=== PATIENT | male | born 1960 | race Caucasian/White ===

== ENCOUNTER 2016-07-21 14:46 | Inpatient (IN) ==
--- NOTE | 2016-07-21 15:21 | EKG Report ---
Stationary ECG Study [facility] ER Test Date: 07/21/2016 3:11:23 PM Pat Name: BC LAMAR Department: Room: Gender: M Project Controls Specialist: : [id number] Requested by: Junior Cavazos Order Number: [id number] Reading MD: AILIN PEREZ Intervals [place] Rate: 100 P: 54 AL: 135 QRS: 59 QRSD: 92 T: 60 QT: 337 QTc: 394 Interpretive Statements SINUS TACHYCARDIA SEPTAL INFARCT, AGE UNDETERMINED PROBABLY OLD MINIMAL ST DEPRESSION Electronically Signed On 07-21-16 15:50:27 NURSING HOME ASSISTANT by AILIN PEREZ [email or web address]
[2016-07-21] MEDS ORDERED: methylPREDNISolone SOD SUC 125 MG/2 ML VIAL IV STA (15:31)
[2016-07-21] MEDS ORDERED: ALBUTEROL/IPRATROPIUM 3 ML NEB RESP TX STA (15:31)
[2016-07-21] MEDS ORDERED: FUROSEMIDE 40 MG/4 ML VIAL IV STA ×2 (15:31→21:20)
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
--- NOTE | 2016-07-21 16:04 | XRay Report ---
History: Shortness of breath Date: 07/21/2016 at 3:49 PM Study: Chest x-ray PA and lateral Comparison exam: Chest x-ray November 12, 2015 There is stable borderline cardiomegaly. The mediastinal contours are unremarkable. The pulmonary vasculature is not engorged. There is moderate right-sided pleural effusion which has increased since the November 12, 2015 chest x-ray. There is a small left pleural effusion. There is some parenchymal consolidation in the right lung base which could represent pneumonia or passive atelectasis. The osseous structures are unchanged. Impression: Moderate right-sided pleural effusion which has increased since the previous study. Probable passive atelectasis right lower lung, though pneumonia cannot be excluded. Tiny left pleural effusion PROCEDURE INTERPRETED AT [facility] DEPARTMENT OF RADIOLOGY Final Report Signed by: Dr. Olive Cline
[2016-07-21] MEDS ORDERED: FUROSEMIDE 100 MG/10 ML VIAL ONE (16:29)
[2016-07-21] MEDS ORDERED: methylPREDNISolone SOD SUC 125 MG/2 ML VIAL ONE (16:30)
[2016-07-21 16:46] LABS: Basophils % 0.7 % (0.0-0.8); Eosinophils # 0.1 10*3/uL (0.0-0.87); Eosinophils % 1.8 % (0.00-10.9); Hematocrit 40.5 VOL% (42.0-52.0); Hemoglobin 13.4 GM/DL (14.0-18.0); Immature Granulocytes % 0.3 %; Immature Granulocytes Absolute 0.02 #; Lymphocytes # 1.2 10*3/uL (1.4-4.0); Lymphocytes % 20.3 % (21.2-54.2); Mean Corpuscular HGB Conc 33.1 GM/DL (32-36); Mean Corpuscular Hemoglobin 28 PG (27-34); Mean Corpuscular Volume 83.2 FL (87-102); Mean Platelet Volume 11.9 FL (9.6-12.0); Monocytes # 0.3 10*3/uL (0.11-0.8); Monocytes % 4.9 % (1.7-12.7); Neutrophils # 4.4 10*3/uL (1.4-7.4); Platelet Count 163 10*3/uL (130-400); Red Blood Count 4.87 10*6/uL (3.8-5.5); Red Cell Distribution Width 12.9 % (9.3-17.3); White Blood Count 6.1 10*3/uL (4.5-13.71)
[2016-07-21 16:58] LABS: PT Patient Result 10.9 SECS
[2016-07-21 17:12] LABS: Albumin 2.6 G/DL (3.4-5.0); Bilirubin,Total 0.5 MG/DL (0.2-1.0); Calcium 8.9 MG/DL (8.5-10.1); Osmolality,Calculated 290.8 MOS/KG (273-304); Potassium 3.3 MMOL/L (3.5-5.1); Total Protein 6.4 G/DL (6.4-8.3)
[2016-07-21 19:18] LABS: Apearance,Urine CLEAR (Clear); Bilirubin,Urine Negative (Negative); Blood, Urine Small mg/dL (Negative); Glucose,Urine (UA) 50 mg/dL (Negative); Hyaline Casts,Urine 14 /LPF (0-3); Ketones,Urine Negative (Negative); Nitrite,Urine Negative (Negative); Protein,Urine 100 MG/DL; RBC,Urine 2 /HPF (0-4); Urine Color Yellow (Yellow); Urine Specific Gravity 1.006 (1.001-1.035); Urine Urobilinogen < 2.0 EU/DL (0.2-1.0); WBC,Urine 2 /HPF (0-6)
[2016-07-21 19:26] LABS: Barbiturates Screen,Urine Negative (Negative); Benzodiazepines Screen,Urine Negative (Negative); Cannabinoid Screen,Urine Negative (Negative); Opiate Screen,Urine Negative (Negative); Phencyclidine Screen,Urine Negative (Negative)
[2016-07-21] MEDS ORDERED: ALBUTEROL NEB SOLN 5 MG/ML 20 ML/BOTTLE CONT NEB STA (21:20)
[2016-07-21] MEDS ORDERED: POTASSIUM BICARB EFFERVESCENT 25 MEQ TABLET PO ONE ×2 (21:23→21:32)
[2016-07-21] MEDS ORDERED: FUROSEMIDE 40 MG/4 ML VIAL ONE (21:32)
[2016-07-21 21:43] LABS: CKMB % 5.7 %; Troponin I Only 0.333 NG/ML (0.00-0.045)
[2016-07-21] MEDS ORDERED: GLUCAGON 1 MG VIAL IM PRN (22:28)
[2016-07-21] MEDS ORDERED: MORPHINE 2 MG/1 ML SYRINGE IV PRN (22:28)
[2016-07-21] MEDS ORDERED: BISACODYL 5 MG TABLET PO PRN (22:28)
[2016-07-21] MEDS ORDERED: ONDANSETRON 4 MG/2 ML VIAL IV PRN (22:28)
[2016-07-21] MEDS ORDERED: DEXTROSE 50% 25 GM/50 ML VIAL IV PRN (22:28)
[2016-07-21] MEDS ORDERED: ACETAMINOPHEN 325 MG TABLET PO PRN (22:28)
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
[2016-07-22 05:07] LABS: Hematocrit 35.9 VOL% (42.0-52.0); Hemoglobin 11.9 GM/DL (14.0-18.0); Immature Granulocytes % 0.2 %; Immature Granulocytes Absolute 0.01 #; Lymphocytes # 0.3 10*3/uL (1.4-4.0); Lymphocytes % 7.9 % (21.2-54.2); Mean Corpuscular HGB Conc 33.1 GM/DL (32-36); Mean Corpuscular Hemoglobin 27 PG (27-34); Mean Corpuscular Volume 82.7 FL (87-102); Mean Platelet Volume 12.2 FL (9.6-12.0); Monocytes # 0.1 10*3/uL (0.11-0.8); Monocytes % 1.2 % (1.7-12.7); Neutrophils # 3.9 10*3/uL (1.4-7.4); Neutrophils % 90.7 % (38.7-73.9); Platelet Count 142 10*3/uL (130-400); Red Blood Count 4.34 10*6/uL (3.8-5.5); Red Cell Distribution Width 13.1 % (9.3-17.3); White Blood Count 4.3 10*3/uL (4.5-13.71)
[2016-07-22 05:38] LABS: Lymphocytes 6 % (20-55); Platelet Estimate Normal; Segmented Neutrophils 93 % (50-85); Total Cells Counted 100
[2016-07-22 05:42] LABS: Calcium 8.3 MG/DL (8.5-10.1); Magnesium 1.4 MG/DL (1.8-2.4); Osmolality,Calculated 313.1 MOS/KG (273-304); Potassium 3.5 MMOL/L (3.5-5.1)
[2016-07-22] MEDS: INSULIN REGULAR 100 UNIT/ML SUBCUT SCH ×5 (05:57→20:28)
--- NOTE | 2016-07-22 08:42 | XRay Report ---
History: Shortness of breath Date: 07/22/2016 at 6:52 AM Study: Chest x-ray AP portable Comparison exam: Chest x-ray 07/21/2016 There is opacification of the lower right hemithorax related to moderate right-sided pleural effusion. There is some underlying parenchymal consolidation which could represent passive atelectasis or pneumonia. The left lung is grossly clear for shallow breath. There is stable borderline cardiomegaly. The mediastinal contours are unchanged in this patient status post previous thoracotomy. The osseous structures are generally unremarkable. Impression: Moderate right-sided pleural effusion without gross change. Parenchymal consolidation in the right lung base which could represent passive atelectasis or pneumonia PROCEDURE INTERPRETED AT [facility] DEPARTMENT OF RADIOLOGY Final Report Signed by: Dr. Olive Cline
[2016-07-22] MEDS ORDERED: INFLUENZA VIRUS VACCINE 0.5 ML SYRINGE IM ONE (09:00)
[2016-07-22] MEDS: FERROUS SULFATE 325 MG TABLET PO SCH ×3 (09:25→20:25)
[2016-07-22] MEDS: predniSONE 10 MG TABLET PO SCH (09:25)
[2016-07-22] MEDS: ATORVASTATIN 80 MG TABLET PO SCH (09:25)
[2016-07-22] MEDS: MAGNESIUM OXIDE 400 MG TABLET PO SCH ×2 (09:25→20:25)
[2016-07-22] MEDS: MULTIVITAMIN (CENTRUM) TABLET PO SCH (09:25)
[2016-07-22] MEDS: GABAPENTIN 300 MG CAPSULE PO SCH ×3 (09:25→20:25)
[2016-07-22] MEDS: ASPIRIN EC 81 MG TABLET PO SCH (09:25)
[2016-07-22] MEDS: PANTOPRAZOLE 40 MG TABLET PO SCH (09:25)
[2016-07-22] MEDS: EZETIMIBE 10 MG TABLET PO SCH (09:25)
[2016-07-22] MEDS: FUROSEMIDE 40 MG/4 ML VIAL IV SCH ×2 (09:26→16:12)
--- NOTE | 2016-07-22 10:47 | ECHO Report ---
Danny Patterson Exam Date: 07/22/2016 08:30 Referring Physician: Technologist: Marcell SMITH Age: 56 Ht (in): Wt (lb): Gender: M Exam Location: [facility] Echo Indications: Diabetes, Hx. CABG, Acute resp. failure, recurrent RT. Pleural effusion, Hx. CAD, HTN, post OP wound infection, elevated BNP BP: / HR: Rhythm: Sinus tachycardia Technical Quality: Fair IMPRESSIONS 1. Patient in sinus tachycardia is a fair quality study. 2. Left ventricle normal size with mild to moderate concentric left ventricular hypertrophy and global hypokinesis and ejection fraction of 35-40% at best. 3. Left atrium is mild to moderately dilated. 4. Right-sided chambers normal size. 5. Mitral valve with trace to mild mitral regurgitation. 6. Normal right-sided pressures. MEASUREMENTS (Male / Female) Normal Values 2D ECHO LV Diastolic Diameter PLAX 4.7 cm 4.2 - 5.9 / 3.9 - 5.3 cm LV Systolic Diameter PLAX 3.8 cm LV Fractional Shortening PLAX 19.3 % IVS Diastolic Thickness 1.6 cm 0.6 - 1.0 / 0.6 - 0.9 cm LVPW Diastolic Thickness 1.4 cm 0.6 - 1.0 / 0.6 - 0.9 cm RV Internal Dim ED PLAX 3.3 cm Aortic Root Diameter 2.9 cm LA Systolic Diameter LX 4.8 cm 3.0 - 4.0 / 2.7 - 3.8 cm DOPPLER TR Peak Velocity 202.0 cm/s TR Peak Gradient 16.3 mmHg FINDINGS Left Ventricle Left ventricle is normal size with mild to moderate concentric left ventricular hypertrophy. There is global hypokinesis with an ejection fraction of 35-40%. Right Ventricle Normal right ventricular size. Right Atrium Normal right atrial size. Left Atrium Left atrium mild to moderately increased in size. Mitral Valve Anatomically normal mitral valve with trace to mild mitral regurgitation. Aortic Valve Aortic valve is a tricuspid structure with normal motion without stenosis or regurgitation. Tricuspid Valve Morphologically normal tricuspid valve. Trace to mild tricuspid valve regurgitation. Tricuspid valve gradient is 16 mmHg. Peak estimated right ventricular pressure is 21-26 mmHg. Pulmonic Valve Morphologically normal pulmonic valve. Pericardium No pericardial effusion. Aorta Normal size aortic root and proximal ascending aorta. Bandar Samano MD (Electronically Signed) Final Date: 22 July 2016 10:46
[2016-07-22] MEDS ORDERED: MAGNESIUM SULF RIDER 2 GM in PREMIX 1 EACH IV PRN (12:12)
[2016-07-22] MEDS ORDERED: MAGNESIUM SULF RIDER 4 GM in PREMIX 1 EACH IV PRN (12:12)
--- NOTE | 2016-07-22 12:31 | Hospitalist Progress Note ---
Assessment and Plan (1) Recurrent right pleural effusion Status: Acute Current Visit: Yes (2) Acute on chronic systolic CHF (congestive heart failure) Status: Acute Current Visit: Yes (3) Acute respiratory failure Status: Acute Current Visit: Yes (4) Insulin dependent diabetes mellitus Status: Acute Current Visit: Yes (5) Hypomagnesemia Status: Acute Current Visit: Yes (6) Hx of CABG Status: Acute Assessment and plan: Plan: 07/21: Admit to telemetry, check serial cardiac enzymes, consult interventional radiology for thoracentesis in the morning. Continue current home medications as appropriate, check echo to evaluate LV function, otherwise supportive care with supplemental oxygen and DuoNeb's. 07/22: Thoracentesis today. We'll start him on low-dose Coreg, hold off YONNY inhibitor/ARB for now due to decreased renal function. Continue diuretics. We' ll watch him overnight and if respiratory status has improved will consider discharge with close follow-up with Dr. Montenegro, his slitting machine operator helper. Current Visit: Yes Hospitalist: Subjective Interval history: Mr. Pattesron continues to have significant dyspnea on exertion as well as orthopnea. I have spoken to the interventional radiologist who will kindly perform a right thoracentesis this afternoon, which is much appreciated. His echo also shows evidence of congestive heart failure with global hypokinesis ejection fraction 35-40%. He denies chest pain, nausea or vomiting. His appetite has improved as well. Exam - Constitutional Vitals: Period Temp Pulse Resp BP Sys/Stern Pulse Ox Last 24 Hr 97.3 F-100.4 F 55-115 18-20 117-148/65-90 93-100 Exam: EXAM: CONSTITUTIONAL: non toxic, NAD HEENT: NC, AT, OP benign, WILFREDO, EOMI CV: RRR no m/g/r RESP: Left side clear, right side with severely diminished breath sounds throughout most of the lung field GI: abd soft, NT, ND, +bowel sounds INTEGUMENTARY: no lesions or rash EXTREMITIES: 1-2+ pitting edema of the lower extremities bilaterally NEURO: no focal deficits PSYCH: unremarkable, A/O x3 Results - Labs CBC & BMP: 07/22/16 04:48 07/22/16 04:48 Lab Results: I have reviewed the past 24 hour labs - Diagnostic Findings Procedure: Chest x-ray: image reviewed by me, report reviewed by me Specialty Discharge - Follow Up or Referrals - Discharge Medications No Action predniSONE TAB [PredniSONE] 10 mg PO DAILY Insulin NPH Human Isophane [NovoLIN N] 20 unit SUBCUT QAM Gabapentin Cap/Tab [Neurontin Cap/Tab] 300 mg PO TID Atorvastatin Calcium 80 mg PO DAILY Torsemide Tab [Demadex Tab] 20 mg PO BID Ezetimibe [Zetia] 10 mg PO DAILY Multivitamin [One Daily] 1 each PO DAILY Magnesium Oxide 400 mg PO BID Insulin Glargine [Lantus] 70 units SUBCUT BEDTIME Ferrous Sulfate 325 mg PO TID Aspirin [Ecotrin] 81 mg PO DAILY
[2016-07-22] MEDS: CARVEDILOL 3.125 MG TABLET PO SCH ×2 (16:12→20:25)
[2016-07-22] MEDS ORDERED: PHENOL 1.4% THROAT SPRAY 177 ML BOTTLE PO PRN (17:40)
--- NOTE | 2016-07-22 18:18 | Post Interventional Procedure ---
Pre-op diagnosis: Right pleural effusion Post-op diagnosis: same Procedure: Ultrasound guided right thoracentesis Radiologist: Olive Cline Anesthesia: local Specimens: none sent Estimated blood loss: none Complications: none Condition: stable Description/Findings: A formal timeout was performed. The right pleural effusion was identified with ultrasound. The dorsal right chest was prepped and draped in sterile fashion. Under sonographic guidance, a 6 [place] pigtail catheter was advanced into the effusion using trocar technique. A captured sonographic image documents needle position. The needle was removed. Through the catheter, we obtained a total of 1000 mL of straw-colored, clear fluid. The catheter was removed. A bandage was placed at the puncture site. The patient tolerated the procedure well. Chest radiograph post procedure showed no pneumothorax. Impression: Ultrasound-guided thoracentesis.
--- NOTE | 2016-07-22 18:37 | XRay Report ---
History: Pleural effusion. Postop thoracentesis Date: 07/22/2016 Study: Chest x-ray inspiration and expiration following thoracentesis by Dr. Cline Comparison exam: Chest x-ray 07/22/2016 at 6:52 AM There is a mild to moderate residual right pleural effusion, though this has decreased moderately in size following thoracentesis. There is some mild atelectatic parenchymal consolidation in the right lung base which is improved. Exam is otherwise unchanged Impression: No evidence of pneumothorax following thoracentesis PROCEDURE INTERPRETED AT [facility] DEPARTMENT OF RADIOLOGY Final Report Signed by: Dr. Olive Cline
--- NOTE | 2016-07-22 18:38 | Ultrasound Report ---
History: Right pleural effusion Date: 07/22/2016 Study: Ultrasound guided right thoracentesis ULTRASOUND-GUIDED THORACENTESIS A formal timeout was performed. The right pleural effusion was identified with ultrasound. The dorsal right chest was prepped and draped in sterile fashion. Under sonographic guidance, a 6 [place] pigtail catheter was advanced into the effusion using trocar technique. A captured sonographic image documents needle position. The needle was removed. Through the catheter, we obtained a total of 1000 mL of straw-colored, clear fluid. The catheter was removed. A bandage was placed at the puncture site. The patient tolerated the procedure well. Chest radiograph post procedure showed no pneumothorax. Impression: Ultrasound-guided thoracentesis. PROCEDURE INTERPRETED AT [facility] DEPARTMENT OF RADIOLOGY Final Report Signed by: Dr. Olive Cline
[2016-07-22] MEDS ORDERED: INSULIN GLARGINE 100 UNIT/ML SUBCUT SCH (21:00)
[2016-07-23 04:58] LABS: Basophils % 0.1 % (0.0-0.8); Eosinophils # 0.1 10*3/uL (0.0-0.87); Eosinophils % 0.4 % (0.00-10.9); Hematocrit 35.7 VOL% (42.0-52.0); Immature Granulocytes % 0.3 %; Immature Granulocytes Absolute 0.04 #; Lymphocytes # 2.1 10*3/uL (1.4-4.0); Mean Corpuscular HGB Conc 33.6 GM/DL (32-36); Mean Corpuscular Hemoglobin 28 PG (27-34); Mean Corpuscular Volume 82.6 FL (87-102); Mean Platelet Volume 12.2 FL (9.6-12.0); Monocytes # 0.5 10*3/uL (0.11-0.8); Monocytes % 3.8 % (1.7-12.7); Neutrophils # 9.8 10*3/uL (1.4-7.4); Neutrophils % 78.4 % (38.7-73.9); Platelet Count 164 10*3/uL (130-400); Red Blood Count 4.32 10*6/uL (3.8-5.5); Red Cell Distribution Width 13.2 % (9.3-17.3); White Blood Count 12.5 10*3/uL (4.5-13.71)
[2016-07-23 05:33] LABS: Calcium 8.5 MG/DL (8.5-10.1); Magnesium 1.5 MG/DL (1.8-2.4); Osmolality,Calculated 295.4 MOS/KG (273-304); Potassium 3.5 MMOL/L (3.5-5.1)
[2016-07-23] MEDS: INSULIN REGULAR 100 UNIT/ML SUBCUT SCH (07:39)
[2016-07-23 08:35] VITALS: BP 156/89
[2016-07-23] MEDS: MULTIVITAMIN (CENTRUM) TABLET PO SCH (09:29)
[2016-07-23] MEDS: MAGNESIUM OXIDE 400 MG TABLET PO SCH (09:29)
[2016-07-23] MEDS: predniSONE 10 MG TABLET PO SCH (09:30)
[2016-07-23] MEDS: FERROUS SULFATE 325 MG TABLET PO SCH (09:30)
[2016-07-23] MEDS: ATORVASTATIN 80 MG TABLET PO SCH (09:30)
[2016-07-23] MEDS: PANTOPRAZOLE 40 MG TABLET PO SCH (09:30)
[2016-07-23] MEDS: GABAPENTIN 300 MG CAPSULE PO SCH (09:30)
[2016-07-23] MEDS: ASPIRIN EC 81 MG TABLET PO SCH (09:30)
[2016-07-23] MEDS: FUROSEMIDE 40 MG/4 ML VIAL IV SCH (09:30)
[2016-07-23] MEDS: CARVEDILOL 3.125 MG TABLET PO SCH (09:30)
[2016-07-23] MEDS: EZETIMIBE 10 MG TABLET PO SCH (09:30)
--- NOTE | 2016-07-23 11:45 | Hospitalist Progress Note ---
Assessment and Plan (1) Recurrent right pleural effusion Status: Acute Current Visit: Yes (2) Acute on chronic systolic CHF (congestive heart failure) Status: Acute Current Visit: Yes (3) Acute respiratory failure Status: Acute Current Visit: Yes (4) Insulin dependent diabetes mellitus Status: Acute Current Visit: Yes (5) Hypomagnesemia Status: Acute Current Visit: Yes (6) Hx of CABG Status: Acute Assessment and plan: Plan: 07/21: Admit to telemetry, check serial cardiac enzymes, consult interventional radiology for thoracentesis in the morning. Continue current home medications as appropriate, check echo to evaluate LV function, otherwise supportive care with supplemental oxygen and DuoNeb's. 07/22: Thoracentesis today. We'll start him on low-dose Coreg, hold off YONNY inhibitor/ARB for now due to decreased renal function. Continue diuretics. We' ll watch him overnight and if respiratory status has improved will consider discharge with close follow-up with Dr. Montenegro, his marketing production coordinator. Current Visit: Yes Hospitalist: Subjective Interval history: Mr. Patterson had a thoracentesis yesterday with around 1 L of straw-colored fluid removed. Exam - Constitutional Vitals: Period Temp Pulse Resp BP Sys/Stern Pulse Ox Last 24 Hr 98.6 F-100.4 F 78-101 18-20 122-156/62-90 92-98 Results - Labs CBC & BMP: 07/23/16 04:05 07/23/16 04:05 Specialty Discharge - Follow Up or Referrals - Discharge Medications No Action predniSONE TAB [PredniSONE] 10 mg PO DAILY Insulin NPH Human Isophane [NovoLIN N] 20 unit SUBCUT QAM Gabapentin Cap/Tab [Neurontin Cap/Tab] 300 mg PO TID Atorvastatin Calcium 80 mg PO DAILY Torsemide Tab [Demadex Tab] 20 mg PO BID Ezetimibe [Zetia] 10 mg PO DAILY Multivitamin [One Daily] 1 each PO DAILY Magnesium Oxide 400 mg PO BID Insulin Glargine [Lantus] 70 units SUBCUT BEDTIME Ferrous Sulfate 325 mg PO TID Aspirin [Ecotrin] 81 mg PO DAILY
--- NOTE | 2016-07-23 11:59 | Discharge Summary ---
Hospital Course - Hospital Course Hospital Course: Mr. Patterson was admitted with shortness of breath and a recurrent right pleural effusion. Interventional radiology drained roughly 1 L of straw- colored fluid from the right pleural space. He's had a CABG in the past and we repeated an echo which showed an EF of roughly 35%. Started him on Coreg. Due to his acute renal failure however not start an YONNY inhibitor/arm at this time. He needs to follow up with Dr. Montenegro, his regular rn mds coordinator I would suggest was in the week for follow-up of his renal function and titration of medications for heart failure. He is currently breathing much more easily, able to ambulate and has no oxygen requirement. He'll be discharged today. - Time spent with patient Time with patient DS: Greater than 30 minutes Diagnosis - Discharge Diagnosis (1) Recurrent right pleural effusion Status: Acute (2) Acute on chronic systolic CHF (congestive heart failure) Status: Acute (3) Acute respiratory failure Status: Resolved (4) Insulin dependent diabetes mellitus Status: Acute (5) Hypomagnesemia Status: Acute (6) Hx of CABG Status: Acute Specialty Discharge - Follow Up or Referrals Follow up with: Evelin Montenegro DO [Physician] - 1 Week (with BMP and Mg, please schedule for patient) - Discharge Medications No Action predniSONE TAB [PredniSONE] 10 mg PO DAILY Insulin NPH Human Isophane [NovoLIN N] 20 unit SUBCUT QAM Gabapentin Cap/Tab [Neurontin Cap/Tab] 300 mg PO TID Atorvastatin Calcium 80 mg PO DAILY Torsemide Tab [Demadex Tab] 20 mg PO BID Ezetimibe [Zetia] 10 mg PO DAILY Multivitamin [One Daily] 1 each PO DAILY Magnesium Oxide 400 mg PO BID Insulin Glargine [Lantus] 70 units SUBCUT BEDTIME Ferrous Sulfate 325 mg PO TID Aspirin [Ecotrin] 81 mg PO DAILY Discharge Plan - Discharge Data Disposition: Disch To Home/Self Care Condition at Discharge: Stable - Discharge Medications New Carvedilol [Coreg] 3.125 mg PO BID #60 tablet Continue predniSONE TAB [PredniSONE] 10 mg PO DAILY Insulin NPH Human Isophane [NovoLIN N] 20 unit SUBCUT QAM Gabapentin Cap/Tab [Neurontin Cap/Tab] 300 mg PO TID Atorvastatin Calcium 80 mg PO DAILY Torsemide Tab [Demadex Tab] 20 mg PO BID Ezetimibe [Zetia] 10 mg PO DAILY Multivitamin [One Daily] 1 each PO DAILY Magnesium Oxide 400 mg PO BID Insulin Glargine [Lantus] 70 units SUBCUT BEDTIME Ferrous Sulfate 325 mg PO TID Aspirin [Ecotrin] 81 mg PO DAILY - Follow Up or Referral - Forms/Instructions Exam - Constitutional Vitals: Period Temp Pulse Resp BP Sys/Tsern Pulse Ox Last 24 Hr 98.6 F-100.4 F 78-101 18-20 122-156/62-90 92-98 Exam: EXAM: CONSTITUTIONAL: non toxic, NAD HEENT: NC, AT, OP benign, WILFREDO, EOMI CV: RRR no m/g/r RESP: Left side clear, improved breath sounds on the right, still with scant rales. GI: abd soft, NT, ND, +bowel sounds INTEGUMENTARY: no lesions or rash EXTREMITIES: 1-2+ pitting edema of the lower extremities bilaterally NEURO: no focal deficits PSYCH: unremarkable, A/O x3 Discharge Results Labs on day of discharge: Labs from last 24 hours 07/23/16 07/23/16 07/23/16 04:05 04:05 04:05 WBC 12.5 D RBC 4.32 Hgb 12.0 L Hct 35.7 L MCV 82.6 L MCH 28 MCHC 33.6 RDW 13.2 Plt Count 164 MPV 12.2 H Neut % (Auto) 78.4 H Lymph % (Auto) 17.0 L [place] % (Auto) 3.8 Eos % (Auto) 0.4 Baso % (Auto) 0.1 Neut # (Auto) 9.8 H Lymph # (Auto) 2.1 [place] # (Auto) 0.5 Eos # (Auto) 0.1 Baso # (Auto) 0.0 Immature Gran % 0.3 Nucleated RBC % 0.0 Immature Gran # 0.04 Nucleated RBCs # 0.00 Sodium 147 H Potassium 3.5 Chloride 105 Carbon Dioxide 30 Anion Gap 15.5 H BUN 30 H Creatinine 2.10 H GFR Calculation 44 BUN/Creatinine Ratio 14.00 Glucose 65 L Calculated Osmolality 295.4 Calcium 8.5 Magnesium 1.5 L B-Natriuretic Peptide 510 H DS: Provider Date of admission: 07/21/16 22:28 Primary care physician: . No PCP Attending physician on admission: Neville Phelps DO Consults: 07/21/16 23:46 Consult to Pharmacy [CONS] Routine Reason for Pharmacy Consult: Adjust Meds Renal Funct Discharging clinician: Neville Phelps DO Expected date of discharge: 07/23/16
== END 2016-07-23 12:38 | disposition home or self-care (01) | DRG 292 ==
LOC: N.ED 14:46 → N.EDINP 22:28 → N.TELES 23:16
PROVIDERS: ADMIT Internal Medicine; ATTEND Internal Medicine
PROC: IRTHORA (2016-07-22 13:35)

== ENCOUNTER 2018-10-08 23:50 | Inpatient (IN) ==
[2018-10-09 00:49] LABS: Basophils % 0.3 % (0.0-0.8); Eosinophils % 0.5 % (0.00-10.9); Hematocrit 25.4 VOL% (42.0-52.0); Hemoglobin 7.5 GM/DL (14.0-18.0); Immature Granulocytes % 0.3 %; Immature Granulocytes Absolute 0.02 #; Lymphocytes # 0.8 10*3/uL (1.4-4.0); Lymphocytes % 12.2 % (21.2-54.2); Mean Corpuscular HGB Conc 29.5 GM/DL (32-36); Mean Corpuscular Volume 98.8 FL (87-102); Mean Platelet Volume 12.9 FL (9.6-12.0); Monocytes % 4.8 % (1.7-12.7); Neutrophils % 81.9 % (38.7-73.9); Platelet Count 107 T/CUMM (130-400); Red Blood Count 2.57 MC/CUMM (3.8-5.5); Red Cell Distribution Width 14.3 % (9.3-17.3); White Blood Count 6.5 T/CUMM (4-12)
[2018-10-09 00:54] LABS: PT Patient Result 10.4 SECS
[2018-10-09 01:19] LABS: Ovalocytes 1+; Platelet Estimate Adequate
[2018-10-09 01:20] LABS: Anisocytosis 1+; Microcytosis 1+
[2018-10-09 01:21] LABS: Alanine Aminotransferase 14 U/L (16-61); Albumin 1.9 G/DL (3.4-5.0); Alkaline Phosphatase 81 U/L (45-117); Aspartate Amino Transferase 10 U/L (0-37); Bilirubin,Total < 0.39 MG/DL (0.2-1.0); Blood Urea Nitrogen 79 MG/DL (7-18); CKMB % 13.2 %; Calcium 7.5 MG/DL (8.5-10.1); Glucose 243 MG/DL (74-106); Osmolality,Calculated 314.1 MOS/KG (273-304); Total Protein 4.4 G/DL (6.4-8.3)
[2018-10-09] MEDS ORDERED: CALCIUM CHLORIDE 1,000 MG/10 ML SYRINGE IV STA (01:51)
[2018-10-09] MEDS ORDERED: SODIUM POLYSTYRENE SULFATE 15 GM/60 ML BOTTLE PO STA (01:55)
[2018-10-09] MEDS ORDERED: FUROSEMIDE 40 MG/4 ML VIAL IV STA (01:58)
[2018-10-09] MEDS ORDERED: DEXTROSE 50% 25 GM/50 ML VIAL IV PRN (03:58)
[2018-10-09] MEDS ORDERED: GLUCAGON 1 MG VIAL IM PRN ×2 (03:58)
[2018-10-09] MEDS ORDERED: DEXTROSE 50% 25 GM/50 ML SYRINGE IV PRN (03:58)
[2018-10-09] MEDS ORDERED: SILVER NITRATE STICK 1 EACH TOP ONE (08:16)
[2018-10-09 08:21] LABS: Basophils % 0.3 % (0.0-0.8); Eosinophils # 0.1 10*3/uL (0.0-0.87); Eosinophils % 1.9 % (0.00-10.9); Hematocrit 24.2 VOL% (42.0-52.0); Hemoglobin 7.1 GM/DL (14.0-18.0); Immature Granulocytes % 0.3 %; Immature Granulocytes Absolute 0.02 #; Lymphocytes % 14.2 % (21.2-54.2); Mean Corpuscular HGB Conc 29.3 GM/DL (32-36); Mean Corpuscular Volume 99.2 FL (87-102); Mean Platelet Volume 13.1 FL (9.6-12.0); Monocytes % 6.1 % (1.7-12.7); Neutrophils % 77.2 % (38.7-73.9); Platelet Count 114 T/CUMM (130-400); Red Blood Count 2.44 MC/CUMM (3.8-5.5); Red Cell Distribution Width 14.5 % (9.3-17.3); White Blood Count 6.9 T/CUMM (4-12)
[2018-10-09 08:44] LABS: Alanine Aminotransferase 15 U/L (16-61); Albumin 1.9 G/DL (3.4-5.0); Alkaline Phosphatase 80 U/L (45-117); Aspartate Amino Transferase 8 U/L (0-37); Bilirubin,Total < 0.39 MG/DL (0.2-1.0); Blood Urea Nitrogen 79 MG/DL (7-18); Glucose 175 MG/DL (74-106); Osmolality,Calculated 310.1 MOS/KG (273-304); Total Protein 4.6 G/DL (6.4-8.3)
[2018-10-09] MEDS ORDERED: CLOPIDOGREL 75 MG TABLET PO SCH (09:00)
[2018-10-09] MEDS: FERROUS SULFATE 325 MG TABLET PO SCH ×3 (09:13→21:53)
[2018-10-09] MEDS: TORSEMIDE 20 MG TABLET PO SCH (09:13)
[2018-10-09] MEDS: MAGNESIUM OXIDE 400 MG TABLET PO SCH ×2 (09:14→21:52)
[2018-10-09] MEDS: ROSUVASTATIN 20 MG TABLET PO SCH (09:14)
[2018-10-09] MEDS: MULTIVITAMIN (CENTRUM) TABLET PO SCH (09:14)
[2018-10-09] MEDS: CYCLOBENZAPRINE 10 MG TABLET PO SCH (09:15)
[2018-10-09] MEDS: predniSONE 10 MG TABLET PO SCH (09:15)
[2018-10-09] MEDS: PANTOPRAZOLE 40 MG TABLET PO SCH (09:16)
[2018-10-09] MEDS: ASPIRIN EC 81 MG TABLET PO SCH (09:16)
[2018-10-09] MEDS: CARVEDILOL 12.5 MG TABLET PO SCH ×2 (09:16→17:45)
[2018-10-09] MEDS: INSULIN REGULAR 100 UNIT/ML SUBCUT SCH ×4 (09:17→21:57)
[2018-10-09] MEDS: COLLAGENASE OINT 30 GM TUBE TOP SCH (10:44)
[2018-10-09] MEDS: SILVER SULFADIAZINE 1% CREAM 25 GM TUBE TOP SCH (10:44)
[2018-10-09] MEDS: SODIUM HYPOCHLORITE 0.25% IRRIG 473 ML BOTTLE TOP SCH (15:17)
[2018-10-09] MEDS: CHLORHEXIDINE 4% SOLN 118 ML BOTTLE TOP SCH (15:18)
[2018-10-09] MEDS: ISOSORBIDE MONONITRATE 30 MG TABLET PO SCH (21:53)
[2018-10-10 02:41] LABS: Apearance,Urine Slightly Hazy (Clear); Bacteria,Urine Occasional /HPF (Few); Bilirubin,Urine Negative (Negative); Blood, Urine Negative (Negative); Glucose,Urine (UA) 150 mg/dL (Negative); Hyaline Casts,Urine 9 /LPF (0-3); Ketones,Urine Negative (Negative); Mucus,Urine Occasional /LPF (Occasional); Nitrite,Urine Negative (Negative); Protein,Urine >=500 MG/DL; RBC,Urine <1 /HPF (0-4); Sperm,Urine Occasional /HPF (Negative); Urine Color Yellow (Yellow); Urine Specific Gravity 1.013 (1.001-1.035); Urine Urobilinogen < 2.0 EU/DL (0.2-1.0); WBC,Urine 1 /HPF (0-6)
[2018-10-10 03:00] LABS: Microalbum/Creat Ratio Random 3819.4 RATIO (0-30)
[2018-10-10 05:52] LABS: Basophils % 0.3 % (0.0-0.8); Eosinophils # 0.1 10*3/uL (0.0-0.87); Eosinophils % 1.4 % (0.00-10.9); Hematocrit 22.8 VOL% (42.0-52.0); Hemoglobin 6.7 GM/DL (14.0-18.0); Immature Granulocytes % 1.5 %; Immature Granulocytes Absolute 0.11 #; Lymphocytes # 0.9 10*3/uL (1.4-4.0); Lymphocytes % 12.9 % (21.2-54.2); Mean Corpuscular HGB Conc 29.4 GM/DL (32-36); Mean Platelet Volume 12.6 FL (9.6-12.0); Monocytes % 6.4 % (1.7-12.7); Neutrophils % 77.5 % (38.7-73.9); Platelet Count 106 T/CUMM (130-400); Red Blood Count 2.28 MC/CUMM (3.8-5.5); Red Cell Distribution Width 14.6 % (9.3-17.3); White Blood Count 7.2 T/CUMM (4-12)
[2018-10-10] MEDS: SILVER SULFADIAZINE 1% CREAM 25 GM TUBE TOP SCH ×3 (06:09→21:59)
[2018-10-10 06:16] LABS: % Iron Saturation 30.1 % (18-50); Ferritin 344.3 ng/ml (26-388)
[2018-10-10 06:26] LABS: Vitamin B12 409 PG/ML (211-911)
[2018-10-10 07:18] LABS: Sedimentation Rate-Westergren 26 MM/HR (0-20)
[2018-10-10] MEDS: INSULIN REGULAR 100 UNIT/ML SUBCUT SCH ×4 (07:53→21:03)
[2018-10-10] MEDS: PANTOPRAZOLE 40 MG TABLET PO SCH (08:15)
[2018-10-10] MEDS: FERROUS SULFATE 325 MG TABLET PO SCH ×3 (08:15→21:02)
[2018-10-10] MEDS: CARVEDILOL 12.5 MG TABLET PO SCH ×2 (08:15→16:28)
[2018-10-10] MEDS: CYCLOBENZAPRINE 10 MG TABLET PO SCH (08:15)
[2018-10-10] MEDS: MAGNESIUM OXIDE 400 MG TABLET PO SCH ×2 (08:15→21:02)
[2018-10-10] MEDS: predniSONE 10 MG TABLET PO SCH (08:15)
[2018-10-10] MEDS: ROSUVASTATIN 20 MG TABLET PO SCH (08:15)
[2018-10-10] MEDS: TORSEMIDE 20 MG TABLET PO SCH (08:15)
[2018-10-10] MEDS: ASPIRIN EC 81 MG TABLET PO SCH (08:15)
[2018-10-10] MEDS: MULTIVITAMIN (CENTRUM) TABLET PO SCH (08:15)
[2018-10-10] MEDS ORDERED: SODIUM CHLORIDE 0.9% 1,000 ML IV PRN (10:53)
[2018-10-10 12:06] LABS: Calcium 7.7 MG/DL (8.5-10.1); Osmolality,Calculated 310.1 MOS/KG (273-304)
[2018-10-10] MEDS: CHLORHEXIDINE 4% SOLN 118 ML BOTTLE TOP SCH (13:23)
[2018-10-10] MEDS: SODIUM HYPOCHLORITE 0.25% IRRIG 473 ML BOTTLE TOP SCH (13:23)
[2018-10-10] MEDS: COLLAGENASE OINT 30 GM TUBE TOP SCH (13:23)
[2018-10-10] MEDS: ERGOCALCIFEROL 50,000 UNIT CAPSULE PO SCH (16:28)
[2018-10-10 18:46] LABS: Hematocrit 26.5 VOL% (42.0-52.0); Hemoglobin 7.8 GM/DL (14.0-18.0)
[2018-10-10] MEDS: ISOSORBIDE MONONITRATE 30 MG TABLET PO SCH (21:02)
[2018-10-11 04:43] LABS: Basophils % 0.1 % (0.0-0.8); Eosinophils % 0.4 % (0.00-10.9); Hematocrit 26.7 VOL% (42.0-52.0); Hemoglobin 8.1 GM/DL (14.0-18.0); Immature Granulocytes % 0.4 %; Immature Granulocytes Absolute 0.04 #; Lymphocytes # 0.7 10*3/uL (1.4-4.0); Lymphocytes % 6.9 % (21.2-54.2); Mean Corpuscular HGB Conc 30.3 GM/DL (32-36); Mean Corpuscular Volume 94.7 FL (87-102); Mean Platelet Volume 13.1 FL (9.6-12.0); Monocytes % 4.7 % (1.7-12.7); Neutrophils % 87.5 % (38.7-73.9); Platelet Count 110 T/CUMM (130-400); Red Blood Count 2.82 MC/CUMM (3.8-5.5); Red Cell Distribution Width 15.1 % (9.3-17.3); White Blood Count 9.5 T/CUMM (4-12)
[2018-10-11 04:51] LABS: Calcium 7.9 MG/DL (8.5-10.1); Osmolality,Calculated 316.8 MOS/KG (273-304)
[2018-10-11 07:32] LABS: Hemoglobin A1 (Alkaline) 97.8 % (96.5-98.5); Hemoglobin A2 (Alkaline) 2.2 % (1.5-3.5)
[2018-10-11] MEDS: INSULIN REGULAR 100 UNIT/ML SUBCUT SCH ×4 (10:13→20:40)
[2018-10-11] MEDS: TORSEMIDE 20 MG TABLET PO SCH (10:40)
[2018-10-11] MEDS: PANTOPRAZOLE 40 MG TABLET PO SCH (10:40)
[2018-10-11] MEDS: CARVEDILOL 12.5 MG TABLET PO SCH ×2 (10:40→17:38)
[2018-10-11] MEDS: MAGNESIUM OXIDE 400 MG TABLET PO SCH ×2 (10:40→20:39)
[2018-10-11] MEDS: ASPIRIN EC 81 MG TABLET PO SCH (10:40)
[2018-10-11] MEDS: CYCLOBENZAPRINE 10 MG TABLET PO SCH ×2 (10:40→10:43)
[2018-10-11] MEDS: MULTIVITAMIN (CENTRUM) TABLET PO SCH (10:40)
[2018-10-11] MEDS: ROSUVASTATIN 20 MG TABLET PO SCH ×2 (10:40→10:42)
[2018-10-11] MEDS: FERROUS SULFATE 325 MG TABLET PO SCH ×3 (10:40→20:40)
[2018-10-11] MEDS: predniSONE 10 MG TABLET PO SCH (10:41)
[2018-10-11] MEDS: COLLAGENASE OINT 30 GM TUBE TOP SCH (12:36)
[2018-10-11] MEDS: SODIUM HYPOCHLORITE 0.25% IRRIG 473 ML BOTTLE TOP SCH (12:36)
[2018-10-11] MEDS: CHLORHEXIDINE 4% SOLN 118 ML BOTTLE TOP SCH (12:36)
[2018-10-11] MEDS: metOLazone 2.5 MG TABLET PO SCH (12:37)
[2018-10-11] MEDS: amLODIPine 5 MG TABLET PO SCH (12:37)
[2018-10-11] MEDS: SILVER SULFADIAZINE 1% CREAM 25 GM TUBE TOP SCH ×2 (12:37→20:46)
[2018-10-11] MEDS ORDERED: DARBEPOETIN ALFA 40 MCG/ML VIAL IV ONE (14:13)
[2018-10-11] MEDS ORDERED: DARBEPOETIN ALFA 40 MCG/ML VIAL SUBCUT ONE (15:39)
[2018-10-11] MEDS: ZINC GLUCONATE 50 MG TABLET PO SCH (16:06)
[2018-10-11] MEDS: SODIUM BICARBONATE 650 MG TABLET PO SCH ×2 (16:06→20:39)
[2018-10-11] MEDS: ISOSORBIDE MONONITRATE 30 MG TABLET PO SCH (20:39)
[2018-10-12 05:23] LABS: Basophils % 0.2 % (0.0-0.8); Eosinophils # 0.1 10*3/uL (0.0-0.87); Eosinophils % 1.5 % (0.00-10.9); Hematocrit 25.4 VOL% (42.0-52.0); Hemoglobin 7.7 GM/DL (14.0-18.0); Immature Granulocytes % 0.5 %; Immature Granulocytes Absolute 0.04 #; Lymphocytes # 0.8 10*3/uL (1.4-4.0); Lymphocytes % 9.7 % (21.2-54.2); Mean Corpuscular HGB Conc 30.3 GM/DL (32-36); Mean Corpuscular Volume 95.5 FL (87-102); Mean Platelet Volume 12.3 FL (9.6-12.0); Monocytes % 5.4 % (1.7-12.7); Neutrophils % 82.7 % (38.7-73.9); Platelet Count 108 T/CUMM (130-400); Red Blood Count 2.66 MC/CUMM (3.8-5.5); Red Cell Distribution Width 14.8 % (9.3-17.3); White Blood Count 8.2 T/CUMM (4-12)
[2018-10-12 05:46] LABS: Calcium 8.2 MG/DL (8.5-10.1); Osmolality,Calculated 313.1 MOS/KG (273-304)
[2018-10-12] MEDS: MULTIVITAMIN (CENTRUM) TABLET PO SCH (09:03)
[2018-10-12] MEDS: ASPIRIN EC 81 MG TABLET PO SCH (09:04)
[2018-10-12] MEDS: predniSONE 10 MG TABLET PO SCH (09:04)
[2018-10-12] MEDS: PANTOPRAZOLE 40 MG TABLET PO SCH (09:04)
[2018-10-12] MEDS: TORSEMIDE 20 MG TABLET PO SCH (09:04)
[2018-10-12] MEDS: SODIUM BICARBONATE 650 MG TABLET PO SCH ×3 (09:05→21:07)
[2018-10-12] MEDS: CARVEDILOL 12.5 MG TABLET PO SCH ×2 (09:05→17:17)
[2018-10-12] MEDS: metOLazone 2.5 MG TABLET PO SCH (09:05)
[2018-10-12] MEDS: ZINC GLUCONATE 50 MG TABLET PO SCH (09:05)
[2018-10-12] MEDS: amLODIPine 5 MG TABLET PO SCH (09:05)
[2018-10-12] MEDS: FERROUS SULFATE 325 MG TABLET PO SCH ×3 (09:05→21:06)
[2018-10-12] MEDS: INSULIN REGULAR 100 UNIT/ML SUBCUT SCH ×4 (09:06→21:05)
[2018-10-12] MEDS: MAGNESIUM OXIDE 400 MG TABLET PO SCH ×2 (09:06→21:06)
[2018-10-12] MEDS: CYCLOBENZAPRINE 10 MG TABLET PO SCH (09:07)
[2018-10-12] MEDS: ROSUVASTATIN 20 MG TABLET PO SCH (09:07)
[2018-10-12] MEDS: GABAPENTIN 300 MG CAPSULE PO SCH ×2 (15:01→21:06)
[2018-10-12] MEDS: COLLAGENASE OINT 30 GM TUBE TOP SCH (15:02)
[2018-10-12] MEDS: SODIUM HYPOCHLORITE 0.25% IRRIG 473 ML BOTTLE TOP SCH (15:02)
[2018-10-12] MEDS: CHLORHEXIDINE 4% SOLN 118 ML BOTTLE TOP SCH (15:03)
[2018-10-12] MEDS: SILVER SULFADIAZINE 1% CREAM 25 GM TUBE TOP SCH ×2 (15:05→21:09)
[2018-10-12] MEDS: ACETAMINOPHEN 325 MG TABLET PO PRN (21:05)
[2018-10-12] MEDS: ISOSORBIDE MONONITRATE 30 MG TABLET PO SCH (21:05)
[2018-10-13 05:07] LABS: Basophils % 0.3 % (0.0-0.8); Eosinophils # 0.1 10*3/uL (0.0-0.87); Eosinophils % 1.3 % (0.00-10.9); Hematocrit 24.9 VOL% (42.0-52.0); Hemoglobin 7.5 GM/DL (14.0-18.0); Immature Granulocytes % 0.4 %; Immature Granulocytes Absolute 0.03 #; Lymphocytes # 0.5 10*3/uL (1.4-4.0); Lymphocytes % 7.7 % (21.2-54.2); Mean Corpuscular HGB Conc 30.1 GM/DL (32-36); Mean Platelet Volume 12.6 FL (9.6-12.0); Monocytes % 5.6 % (1.7-12.7); Neutrophils % 84.7 % (38.7-73.9); Platelet Count 113 T/CUMM (130-400); Red Blood Count 2.62 MC/CUMM (3.8-5.5); Red Cell Distribution Width 14.9 % (9.3-17.3); White Blood Count 6.8 T/CUMM (4-12)
[2018-10-13 05:27] LABS: Calcium 7.9 MG/DL (8.5-10.1)
[2018-10-13] MEDS: INSULIN REGULAR 100 UNIT/ML SUBCUT SCH ×4 (07:30→20:34)
[2018-10-13] MEDS: ACETAMINOPHEN 325 MG TABLET PO PRN (07:31)
[2018-10-13] MEDS: CARVEDILOL 12.5 MG TABLET PO SCH ×2 (07:31→17:39)
[2018-10-13] MEDS: TORSEMIDE 20 MG TABLET PO SCH (09:16)
[2018-10-13] MEDS: GABAPENTIN 300 MG CAPSULE PO SCH ×3 (09:17→20:34)
[2018-10-13] MEDS: ASPIRIN EC 81 MG TABLET PO SCH (09:17)
[2018-10-13] MEDS: ZINC GLUCONATE 50 MG TABLET PO SCH (09:17)
[2018-10-13] MEDS: SODIUM BICARBONATE 650 MG TABLET PO SCH ×3 (09:17→20:35)
[2018-10-13] MEDS: MAGNESIUM OXIDE 400 MG TABLET PO SCH ×2 (09:17→20:35)
[2018-10-13] MEDS: MULTIVITAMIN (CENTRUM) TABLET PO SCH (09:17)
[2018-10-13] MEDS: CYCLOBENZAPRINE 10 MG TABLET PO SCH (09:17)
[2018-10-13] MEDS: metOLazone 2.5 MG TABLET PO SCH (09:17)
[2018-10-13] MEDS: FERROUS SULFATE 325 MG TABLET PO SCH ×3 (09:18→20:35)
[2018-10-13] MEDS: ROSUVASTATIN 20 MG TABLET PO SCH ×2 (09:18→09:40)
[2018-10-13] MEDS: amLODIPine 5 MG TABLET PO SCH (09:18)
[2018-10-13] MEDS: ONDANSETRON 4 MG/2 ML VIAL IV PRN (14:29)
[2018-10-13] MEDS: CHLORHEXIDINE 4% SOLN 118 ML BOTTLE TOP SCH (15:00)
[2018-10-13] MEDS: COLLAGENASE OINT 30 GM TUBE TOP SCH (15:00)
[2018-10-13] MEDS: predniSONE 10 MG TABLET PO SCH (15:00)
[2018-10-13] MEDS: SODIUM HYPOCHLORITE 0.25% IRRIG 473 ML BOTTLE TOP SCH (15:00)
[2018-10-13] MEDS: SILVER SULFADIAZINE 1% CREAM 25 GM TUBE TOP SCH ×2 (15:00→20:35)
[2018-10-13] MEDS: PANTOPRAZOLE 40 MG TABLET PO SCH (15:00)
[2018-10-13] MEDS ORDERED: SODIUM CHLORIDE 0.9% 1,000 ML IV PRN (16:22)
[2018-10-13] MEDS: ISOSORBIDE MONONITRATE 30 MG TABLET PO SCH (20:35)
[2018-10-14 05:51] LABS: Basophils % 0.2 % (0.0-0.8); Hematocrit 30.6 VOL% (42.0-52.0); Hemoglobin 9.1 GM/DL (14.0-18.0); Immature Granulocytes % 0.5 %; Immature Granulocytes Absolute 0.05 #; Lymphocytes # 0.4 10*3/uL (1.4-4.0); Lymphocytes % 4.5 % (21.2-54.2); Mean Corpuscular HGB Conc 29.7 GM/DL (32-36); Mean Corpuscular Volume 95.3 FL (87-102); Mean Platelet Volume 12.1 FL (9.6-12.0); Monocytes % 3.9 % (1.7-12.7); Neutrophils % 90.9 % (38.7-73.9); Platelet Count 125 T/CUMM (130-400); Red Blood Count 3.21 MC/CUMM (3.8-5.5); Red Cell Distribution Width 14.6 % (9.3-17.3); White Blood Count 9.3 T/CUMM (4-12)
[2018-10-14 06:16] LABS: Calcium 8.3 MG/DL (8.5-10.1); Hypochromasia 1+; Lymphocytes 2 % (20-55); Osmolality,Calculated 315.3 MOS/KG (273-304); Ovalocytes Slight; Platelet Estimate Adequate; Segmented Neutrophils 96 % (50-85); Total Cells Counted 100
[2018-10-14] MEDS: INSULIN REGULAR 100 UNIT/ML SUBCUT SCH ×4 (08:49→21:18)
[2018-10-14] MEDS: SODIUM BICARBONATE 650 MG TABLET PO SCH ×3 (08:50→21:17)
[2018-10-14] MEDS: TORSEMIDE 20 MG TABLET PO SCH (08:50)
[2018-10-14] MEDS: CYCLOBENZAPRINE 10 MG TABLET PO SCH (08:51)
[2018-10-14] MEDS: predniSONE 10 MG TABLET PO SCH (08:51)
[2018-10-14] MEDS: ASPIRIN EC 81 MG TABLET PO SCH (08:51)
[2018-10-14] MEDS: CARVEDILOL 12.5 MG TABLET PO SCH ×2 (08:51→16:19)
[2018-10-14] MEDS: MAGNESIUM OXIDE 400 MG TABLET PO SCH ×2 (08:51→21:18)
[2018-10-14] MEDS: metOLazone 2.5 MG TABLET PO SCH (08:51)
[2018-10-14] MEDS: MULTIVITAMIN (CENTRUM) TABLET PO SCH (08:51)
[2018-10-14] MEDS: amLODIPine 5 MG TABLET PO SCH (08:51)
[2018-10-14] MEDS: FERROUS SULFATE 325 MG TABLET PO SCH ×3 (08:51→21:18)
[2018-10-14] MEDS: ROSUVASTATIN 20 MG TABLET PO SCH (08:51)
[2018-10-14] MEDS: PANTOPRAZOLE 40 MG TABLET PO SCH (08:51)
[2018-10-14] MEDS: GABAPENTIN 300 MG CAPSULE PO SCH ×3 (08:52→21:18)
[2018-10-14] MEDS: ZINC GLUCONATE 50 MG TABLET PO SCH (08:52)
[2018-10-14] MEDS: SILVER SULFADIAZINE 1% CREAM 25 GM TUBE TOP SCH ×2 (08:54→21:19)
[2018-10-14] MEDS: CHLORHEXIDINE 4% SOLN 118 ML BOTTLE TOP SCH (08:54)
[2018-10-14] MEDS: COLLAGENASE OINT 30 GM TUBE TOP SCH (08:54)
[2018-10-14] MEDS: SODIUM HYPOCHLORITE 0.25% IRRIG 473 ML BOTTLE TOP SCH (08:54)
[2018-10-14] MEDS: ISOSORBIDE MONONITRATE 30 MG TABLET PO SCH (21:18)
[2018-10-15 04:53] LABS: Basophils % 0.2 % (0.0-0.8); Eosinophils # 0.1 10*3/uL (0.0-0.87); Eosinophils % 0.5 % (0.00-10.9); Hematocrit 26.8 VOL% (42.0-52.0); Hemoglobin 8.1 GM/DL (14.0-18.0); Immature Granulocytes % 0.5 %; Immature Granulocytes Absolute 0.05 #; Lymphocytes # 0.7 10*3/uL (1.4-4.0); Lymphocytes % 6.7 % (21.2-54.2); Mean Corpuscular HGB Conc 30.2 GM/DL (32-36); Mean Corpuscular Volume 95.4 FL (87-102); Mean Platelet Volume 12.4 FL (9.6-12.0); Monocytes % 6.1 % (1.7-12.7); Platelet Count 130 T/CUMM (130-400); Red Blood Count 2.81 MC/CUMM (3.8-5.5); Red Cell Distribution Width 14.7 % (9.3-17.3); White Blood Count 10.3 T/CUMM (4-12)
[2018-10-15 05:09] LABS: Osmolality,Calculated 321.1 MOS/KG (273-304)
[2018-10-15] MEDS: INSULIN REGULAR 100 UNIT/ML SUBCUT SCH ×4 (08:13→20:34)
[2018-10-15] MEDS: ONDANSETRON 4 MG/2 ML VIAL IV PRN ×2 (08:14→18:04)
[2018-10-15] MEDS: predniSONE 10 MG TABLET PO SCH (08:16)
[2018-10-15] MEDS: CARVEDILOL 12.5 MG TABLET PO SCH ×2 (08:16→17:10)
[2018-10-15] MEDS: PANTOPRAZOLE 40 MG TABLET PO SCH (08:16)
[2018-10-15] MEDS: GABAPENTIN 300 MG CAPSULE PO SCH ×3 (08:16→20:33)
[2018-10-15] MEDS: ASPIRIN EC 81 MG TABLET PO SCH (08:17)
[2018-10-15] MEDS: metOLazone 2.5 MG TABLET PO SCH (08:17)
[2018-10-15] MEDS: TORSEMIDE 20 MG TABLET PO SCH (08:17)
[2018-10-15] MEDS: ACETAMINOPHEN 325 MG TABLET PO PRN (08:17)
[2018-10-15] MEDS: FERROUS SULFATE 325 MG TABLET PO SCH ×3 (08:17→20:33)
[2018-10-15] MEDS: SODIUM BICARBONATE 650 MG TABLET PO SCH ×3 (08:17→20:33)
[2018-10-15] MEDS: ZINC GLUCONATE 50 MG TABLET PO SCH (08:17)
[2018-10-15] MEDS: MULTIVITAMIN (CENTRUM) TABLET PO SCH (08:17)
[2018-10-15] MEDS: CYCLOBENZAPRINE 10 MG TABLET PO SCH (08:18)
[2018-10-15] MEDS: MAGNESIUM OXIDE 400 MG TABLET PO SCH ×2 (08:18→20:33)
[2018-10-15] MEDS: amLODIPine 5 MG TABLET PO SCH (08:18)
[2018-10-15] MEDS: ROSUVASTATIN 20 MG TABLET PO SCH (08:19)
[2018-10-15] MEDS: SILVER SULFADIAZINE 1% CREAM 25 GM TUBE TOP SCH ×2 (13:04→20:37)
[2018-10-15] MEDS: SODIUM HYPOCHLORITE 0.25% IRRIG 473 ML BOTTLE TOP SCH (13:05)
[2018-10-15] MEDS: CHLORHEXIDINE 4% SOLN 118 ML BOTTLE TOP SCH (13:05)
[2018-10-15] MEDS: COLLAGENASE OINT 30 GM TUBE TOP SCH (13:05)
[2018-10-15] MEDS ORDERED: ceFAZolin 1,000 MG in SYRINGE 1 EACH IV ONE (15:13)
[2018-10-15] MEDS: ISOSORBIDE MONONITRATE 30 MG TABLET PO SCH (20:33)
[2018-10-16 05:17] LABS: Basophils % 0.3 % (0.0-0.8); Eosinophils # 0.2 10*3/uL (0.0-0.87); Eosinophils % 1.3 % (0.00-10.9); Hematocrit 29.8 VOL% (42.0-52.0); Hemoglobin 9.1 GM/DL (14.0-18.0); Immature Granulocytes % 0.9 %; Lymphocytes # 0.6 10*3/uL (1.4-4.0); Lymphocytes % 5.3 % (21.2-54.2); Mean Corpuscular HGB Conc 30.5 GM/DL (32-36); Mean Corpuscular Volume 94.3 FL (87-102); Mean Platelet Volume 12.4 FL (9.6-12.0); Monocytes % 6.2 % (1.7-12.7); Platelet Count 150 T/CUMM (130-400); Red Blood Count 3.16 MC/CUMM (3.8-5.5); Red Cell Distribution Width 14.7 % (9.3-17.3); White Blood Count 11.3 T/CUMM (4-12)
[2018-10-16 05:31] LABS: Calcium 8.1 MG/DL (8.5-10.1); Osmolality,Calculated 320.3 MOS/KG (273-304)
[2018-10-16 06:24] LABS: Hepatitis B Core IgM Quant 0.15 Index; Hepatitis B Surface Ag Quant < 0.10 Index; Hepatitis B Surface Ag Result Negative (Negative); Hepatitis C Virus Ab Quant 0.03 Index; Hepatitis C Virus Ab Result Negative (Negative)
[2018-10-16] MEDS ORDERED: BUPIVACAINE 0.5% 50 ML VIAL ONE (07:28)
[2018-10-16] MEDS ORDERED: HEPARIN 5,000 UNIT/1 ML VIAL ONE (07:28)
[2018-10-16] MEDS ORDERED: LIDOCAINE 1%/EPI INJ 20 ML VIAL ONE (07:28)
[2018-10-16] MEDS: CARVEDILOL 12.5 MG TABLET PO SCH ×2 (07:35→16:26)
[2018-10-16] MEDS: INSULIN REGULAR 100 UNIT/ML SUBCUT SCH ×4 (07:35→22:08)
[2018-10-16] MEDS ORDERED: ceFAZolin 1,000 MG VIAL ONE (07:37)
[2018-10-16] MEDS ORDERED: SODIUM CHLORIDE 0.9% 250 ML IV SCH (08:00)
[2018-10-16] MEDS ORDERED: MIDAZOLAM 2 MG/2 ML VIAL ONE (08:43)
[2018-10-16] MEDS ORDERED: PHENYLEPHRINE 1 MG/10 ML SYRINGE IV ONE (08:43)
[2018-10-16] MEDS ORDERED: fentaNYL 100 MCG/2 ML VIAL ONE (08:43)
[2018-10-16] MEDS ORDERED: NALOXONE 0.4 MG/ML VIAL ONE (08:43)
[2018-10-16] MEDS ORDERED: HEPARIN 10,000 UNIT/10 ML VIAL IV PRN (10:06)
[2018-10-16] MEDS: SODIUM BICARBONATE 650 MG TABLET PO SCH ×3 (10:56→22:07)
[2018-10-16] MEDS: GABAPENTIN 300 MG CAPSULE PO SCH ×3 (11:38→22:05)
[2018-10-16] MEDS: amLODIPine 5 MG TABLET PO SCH (12:42)
[2018-10-16] MEDS: TORSEMIDE 20 MG TABLET PO SCH (12:42)
[2018-10-16] MEDS: ROSUVASTATIN 20 MG TABLET PO SCH (12:42)
[2018-10-16] MEDS: ZINC GLUCONATE 50 MG TABLET PO SCH (12:42)
[2018-10-16] MEDS: CYCLOBENZAPRINE 10 MG TABLET PO SCH (12:42)
[2018-10-16] MEDS: PANTOPRAZOLE 40 MG TABLET PO SCH (12:42)
[2018-10-16] MEDS: ASPIRIN EC 81 MG TABLET PO SCH (12:42)
[2018-10-16] MEDS: FERROUS SULFATE 325 MG TABLET PO SCH ×3 (12:42→22:06)
[2018-10-16] MEDS: MULTIVITAMIN (CENTRUM) TABLET PO SCH (12:42)
[2018-10-16] MEDS: predniSONE 10 MG TABLET PO SCH (12:43)
[2018-10-16] MEDS: MAGNESIUM OXIDE 400 MG TABLET PO SCH ×2 (12:43→22:06)
[2018-10-16] MEDS: COLLAGENASE OINT 30 GM TUBE TOP SCH (12:45)
[2018-10-16] MEDS: SILVER SULFADIAZINE 1% CREAM 25 GM TUBE TOP SCH ×2 (12:45→22:08)
[2018-10-16] MEDS: metOLazone 2.5 MG TABLET PO SCH (12:45)
[2018-10-16] MEDS: CHLORHEXIDINE 4% SOLN 118 ML BOTTLE TOP SCH (12:46)
[2018-10-16] MEDS: SODIUM HYPOCHLORITE 0.25% IRRIG 473 ML BOTTLE TOP SCH (12:46)
[2018-10-16] MEDS ORDERED: TUBERCULIN SKIN TEST 0.1 ML SYRINGE INTRADERM ONE (14:02)
[2018-10-16] MEDS: ACETAMINOPHEN 325 MG TABLET PO PRN (14:48)
[2018-10-16] MEDS: ISOSORBIDE MONONITRATE 30 MG TABLET PO SCH (22:07)
[2018-10-17] MEDS: MULTIVITAMIN (CENTRUM) TABLET PO SCH (09:03)
[2018-10-17] MEDS: SODIUM BICARBONATE 650 MG TABLET PO SCH ×3 (09:03→20:23)
[2018-10-17] MEDS: TORSEMIDE 20 MG TABLET PO SCH (09:03)
[2018-10-17] MEDS: CYCLOBENZAPRINE 10 MG TABLET PO SCH (09:03)
[2018-10-17] MEDS: FERROUS SULFATE 325 MG TABLET PO SCH ×3 (09:03→20:24)
[2018-10-17] MEDS: ASPIRIN EC 81 MG TABLET PO SCH (09:03)
[2018-10-17] MEDS: MAGNESIUM OXIDE 400 MG TABLET PO SCH ×2 (09:03→20:24)
[2018-10-17] MEDS: PANTOPRAZOLE 40 MG TABLET PO SCH (09:04)
[2018-10-17] MEDS: metOLazone 2.5 MG TABLET PO SCH (09:04)
[2018-10-17] MEDS: ROSUVASTATIN 20 MG TABLET PO SCH (09:04)
[2018-10-17] MEDS: INSULIN REGULAR 100 UNIT/ML SUBCUT SCH ×4 (09:04→20:24)
[2018-10-17] MEDS: GABAPENTIN 300 MG CAPSULE PO SCH ×3 (09:04→20:24)
[2018-10-17] MEDS: predniSONE 10 MG TABLET PO SCH (09:04)
[2018-10-17] MEDS: ZINC GLUCONATE 50 MG TABLET PO SCH (09:05)
[2018-10-17] MEDS: amLODIPine 5 MG TABLET PO SCH (12:58)
[2018-10-17] MEDS: CARVEDILOL 12.5 MG TABLET PO SCH ×2 (12:58→17:06)
[2018-10-17] MEDS: SODIUM HYPOCHLORITE 0.25% IRRIG 473 ML BOTTLE TOP SCH (14:53)
[2018-10-17] MEDS: CHLORHEXIDINE 4% SOLN 118 ML BOTTLE TOP SCH (14:53)
[2018-10-17] MEDS: COLLAGENASE OINT 30 GM TUBE TOP SCH (14:55)
[2018-10-17] MEDS: SILVER SULFADIAZINE 1% CREAM 25 GM TUBE TOP SCH ×2 (15:02→20:25)
[2018-10-17] MEDS: ERGOCALCIFEROL 50,000 UNIT CAPSULE PO SCH (15:59)
[2018-10-17] MEDS: ISOSORBIDE MONONITRATE 30 MG TABLET PO SCH (20:24)
[2018-10-18] MEDS: INSULIN REGULAR 100 UNIT/ML SUBCUT SCH ×3 (07:45→17:20)
[2018-10-18 12:58] VITALS: BP 124/74
[2018-10-18] MEDS: SODIUM BICARBONATE 650 MG TABLET PO SCH ×2 (14:33→17:19)
[2018-10-18] MEDS: CARVEDILOL 12.5 MG TABLET PO SCH ×2 (14:34→17:19)
[2018-10-18] MEDS: FERROUS SULFATE 325 MG TABLET PO SCH ×2 (14:34→17:19)
[2018-10-18] MEDS: CYCLOBENZAPRINE 10 MG TABLET PO SCH (14:34)
[2018-10-18] MEDS: TORSEMIDE 20 MG TABLET PO SCH (14:34)
[2018-10-18] MEDS: amLODIPine 5 MG TABLET PO SCH (14:34)
[2018-10-18] MEDS: GABAPENTIN 300 MG CAPSULE PO SCH ×2 (14:34→17:19)
[2018-10-18] MEDS: predniSONE 10 MG TABLET PO SCH (14:35)
[2018-10-18] MEDS: MAGNESIUM OXIDE 400 MG TABLET PO SCH (14:35)
[2018-10-18] MEDS: ASPIRIN EC 81 MG TABLET PO SCH (14:35)
[2018-10-18] MEDS: PANTOPRAZOLE 40 MG TABLET PO SCH (14:35)
[2018-10-18] MEDS: ROSUVASTATIN 20 MG TABLET PO SCH (14:35)
[2018-10-18] MEDS: MULTIVITAMIN (CENTRUM) TABLET PO SCH (14:36)
[2018-10-18] MEDS: ZINC GLUCONATE 50 MG TABLET PO SCH (14:36)
[2018-10-18] MEDS: metOLazone 2.5 MG TABLET PO SCH (14:36)
[2018-10-18] MEDS: SODIUM HYPOCHLORITE 0.25% IRRIG 473 ML BOTTLE TOP SCH (17:17)
[2018-10-18] MEDS: CHLORHEXIDINE 4% SOLN 118 ML BOTTLE TOP SCH (17:18)
[2018-10-18] MEDS: COLLAGENASE OINT 30 GM TUBE TOP SCH (17:18)
[2018-10-18] MEDS: SILVER SULFADIAZINE 1% CREAM 25 GM TUBE TOP SCH (17:20)
== END 2018-10-18 19:11 | DRG 264 ==
LOC: EDBD → EDUNIT# → N.ED 23:50 → N.5E 23:50 → SUATTDRO 10-09 01:09 → N.5E 10-09 04:31 → SUATTDRO 10-15 14:09
PROVIDERS: ADMIT Hospitalist; ATTEND Hospitalist